=== PATIENT | male | born 1950 | race Caucasian/White ===

== ENCOUNTER 2017-05-13 07:05 | Day surgery (SDC) | payer BC, MEDICARE ==
[2017-05-13] MEDS ORDERED: SODIUM CHLORIDE 0.9% FLUSH 10 ML SOL IV ONE (08:07)
[2017-05-13] MEDS ORDERED: DEXAMETHASONE SOD PHOS PF 10 MG/ML SOL IJ ONE (08:13)
[2017-05-13] MEDS ORDERED: BUPIVACAINE HCL 0.25% MPF 10 ML SOL INFIL ONE (08:13)
[2017-05-13] MEDS ORDERED: MIDAZOLAM 2 MG/2 ML SOL ONE (08:16)
[2017-05-13] MEDS ORDERED: FENTANYL 100MCG/2ML SOL ONE (08:17)
[2017-05-13 08:55] VITALS: PULSE 76; RESP 14; TEMP 98.5; O2SAT 92
[2017-05-13 10:51] VITALS: BP 124/84
== END 2017-05-13 09:21 | disposition home or self-care (01) ==
LOC: SURG 07:05
PROVIDERS: ATTEND Nurse Anesthetist, Certified Registered
DX: M54.16 Radiculopathy, lumbar region (principal)
CPT/HCPCS: 82962; J2250; J3010; J1100

== ENCOUNTER 2017-06-02 14:27 | Day surgery (SDC) | payer BC, MEDICARE ==
[2017-06-02] MEDS ORDERED: DEXAMETHASONE SOD PHOS PF 10 MG/ML SOL IJ ONE (15:12)
[2017-06-02] MEDS ORDERED: BUPIVACAINE HCL 0.25% MPF 10 ML SOL INFIL ONE (15:12)
[2017-06-02] MEDS ORDERED: SODIUM CHLORIDE 0.9% FLUSH 10 ML SOL IV ONE (15:20)
[2017-06-02] MEDS: MIDAZOLAM 2 MG/2 ML SOL ONE ×2 (15:29→15:36)
[2017-06-02] MEDS: FENTANYL 100MCG/2ML SOL ONE ×2 (15:29→15:33)
[2017-06-02 16:04] VITALS: TEMP 97.4
[2017-06-02 16:34] VITALS: BP 138/82; PULSE 72; RESP 20; O2SAT 93
== END 2017-06-02 16:31 | disposition home or self-care (01) ==
LOC: SURG 14:27
PROVIDERS: ATTEND Nurse Anesthetist, Certified Registered
DX: M54.16 Radiculopathy, lumbar region (principal)
CPT/HCPCS: J2250; J3010; J1100